=== PATIENT | male | born 1955 | race Caucasian/White ===

== ENCOUNTER 2016-12-20 10:24 | Day surgery (SDC) | payer BC ==
--- NOTE | ~2016-12-20 | EGD ---
EGD REPORT [facility] [address] [address] NAME: JHONY CHAHAL : 53 STATUS : REG [place] [facility] [place] PAT#: [id number] AGE: 61 ADM/REG DATE : 12/20/16 MR#: [id number] REPORT SERV DATE: 12/20/16 DICTATED BY: YUSUF RIBEIRO DATE: 12/20/16 REPORT STATUS : Draft TRANSCRIBED BY: [employer] DATE: 12/20/16 [facility] Center Patient Name: Jhony Chahal Date of : 1955 Attending MD: YUSUF RIBEIRO MD Procedure Date No Time: 12/20/2016 Procedure: Colonoscopy Indications: Screening for colorectal malignant neoplasm Referring MD: LUIS MANUEL ALMEIDA MD Medicines: as per anesthesia Complications: No immediate complications. Procedure: Pre-Anesthesia Assessment: - ASA Grade Assessment: II - A patient with mild systemic disease. After I obtained informed consent, the scope was passed under direct vision. Throughout the procedure, the patient's blood pressure, pulse, and oxygen saturations were monitored continuously. The PCF [id number] was introduced through the anus and advanced to the cecum, identified by appendiceal orifice and ileocecal valve. The colonoscopy was somewhat difficult due to significant looping and a tortuous colon. The patient tolerated the procedure. The quality of the bowel preparation was fair. Findings: The perianal and digital rectal examinations were normal. Internal hemorrhoids were found during endoscopy and were mild. Impression: - Internal hemorrhoids. Recommendation: - Repeat colonoscopy in 10 years for surveillance. Procedure Code(s): --- Professional --- 18620, Colonoscopy, flexible, proximal to splenic flexure; diagnostic, with or without collection of specimen(s) by brushing or washing, with or without colon decompression (separate procedure) Diagnosis Code(s): --- Professional --- K64.8, Other hemorrhoids Z12.11, Encounter for screening for malignant neoplasm of colon EGD REPORT [facility] [address] [place] [address] NAME: JHONY CHAHAL : 53 STATUS : [place] [facility] [place] PAT#: [id number] AGE: 61 ADM/REG DATE : 12/20/16 MR#: [id number] REPORT SERV DATE: 12/20/16 DICTATED BY: YUSUF RIBEIRO. DATE: 12/20/16 REPORT STATUS : Draft TRANSCRIBED BY: [employer] DATE: 12/20/16 CPT copyright 2013 [employer]. All rights reserved. The codes documented in this report are preliminary and upon country printer review may be revised to meet current compliance requirements. YUSUF RIBEIRO MD 12/20/2016 12:47 PM This report has been signed electronically. Number of Addenda: 0 Note Initiated On: 12/20/2016 12:13 PM Scope Withdrawal Time 0 hours 8 minutes 8 seconds [id number] [place] [address]
[~2016-12-20 10:24] MED LIST: ARMOUR THYRO120 MG PO; CLOMID50 MG PO
== END 2016-12-20 23:59 | disposition home or self-care (01) ==
LOC: DMU 10:24
PROVIDERS: Internal Medicine Gastroenterology
PROC: 0DJD8ZZ Inspection of Lower Intestinal Tract, Via Natural or Artificial Opening Endoscopic (ICD-10-PCS; principal; 2016-12-20 12:00)
DX: Z12.11 Encounter for screening for malignant neoplasm of colon (principal); K64.8 Other hemorrhoids; E03.9 Hypothyroidism, unspecified; Z79.899 Other long term (current) drug therapy